=== PATIENT | male | born 1990 | race African-American/Black ===

== ENCOUNTER 2022-04-01 09:17 | Emergency (ER) | payer BC ==
[~2022-04-01] VITALS: Ht 177.8 cm; Wt 102.0 kg
[2022-04-01] MEDS ORDERED: IBUPROFEN 400MG TABLET PO ONE (09:45)
[2022-04-01] MEDS ORDERED: IBUP-2028 PO (09:48)
[2022-04-01] MEDS ORDERED: T3 PO (09:48)
[2022-04-01 10:00] VITALS: BP 153/95
== END 2022-04-01 11:08 | disposition home or self-care (01) ==
LOC: ER 09:33
DX: M54.59 Other low back pain (principal); R51.9 Headache, unspecified; V49.49XA Driver injured in collision with other motor vehicles in traffic accident, initial encounter; Y93.89 Activity, other specified; Y92.488 Other paved roadways as the place of occurrence of the external cause
CPT/HCPCS: 99283